=== PATIENT | female | born 1985 | race African-American/Black ===

== ENCOUNTER 2017-10-19 09:54 | Emergency (ER) | payer OTHER ==
[~2017-10-19] VITALS: Ht 162.6 cm; Wt 105.2 kg
[2017-10-19 10:04] VITALS: BP 117/73
[2017-10-19] MEDS ORDERED: LIDOCAINE 1% HCL (LOCAL ANESTH.) INJ 20ML MDV IJ ONE (12:15)
== END 2017-10-19 13:56 | disposition home or self-care (01) ==
LOC: ER 09:54
DX: S61.012A Laceration without foreign body of left thumb without damage to nail, initial encounter (principal); W26.8XXA Contact with other sharp object(s), not elsewhere classified, initial encounter; Y93.89 Activity, other specified; Y92.89 Other specified places as the place of occurrence of the external cause; Y99.8 Other external cause status
CPT/HCPCS: 12002; 73140; 99284; J2001